=== PATIENT | male | born 1955 | race Caucasian/White ===

== ENCOUNTER 2019-10-30 00:47 | Inpatient (IN) | payer BC ==
[2019-10-30] VITALS (15 sets, daily range): BP systolic 118–167; BP diastolic 54–88
[~2019-10-30] VITALS: Ht 180.3 cm; Wt 100.6 kg
[~2019-10-30 00:47] MED LIST: ASPI-1265 PO; ATOR80TA PO; LANTUS SQ; METF-438 PO; METO50TA17 PO; NITR0.4T48 SL; OMEP40CA13 PO; SITA100T15 PO; TICA90TA PO; ZES10T PO
--- NOTE | 2019-10-30 00:59 | NUR ---
YUVAL SOUZA CALL FOR RIDE AND OR INFO [phone]
[2019-10-30] MEDS ORDERED: aspirin 81mg tab.chew PO ONE ×3 (01:05→15:05)
[2019-10-30] MEDS ORDERED: nitroGLYCERIN 0.4mg SUBLingual tab SL PRN ×3 (01:05→02:00)
[2019-10-30 01:24] LABS: BASOPHILS # (AUTO) 0.1 X10'3 (0-0.2); BASOPHILS % (AUTO) 0.9 % (0-1); EOSINOPHILS # (AUTO) 0.1 X10'3 (0-0.9); EOSINOPHILS % (AUTO) 0.9 % (0-6); HEMATOCRIT 42.3 % (42.0-52.0); HEMOGLOBIN 14.2 g/dl (14.0-17.9); LYMPHOCYTES # (AUTO) 4.1 X10'3 (1.1-4.8); LYMPHOCYTES % (AUTO) 33.2 % (21-51); MEAN CORPUSCULAR HEMOGLOBIN 30.9 PG (27.0-31.0); MEAN CORPUSCULAR HGB CONC 33.6 g/dL (33.0-36.5); MEAN CORPUSCULAR VOLUME 92.1 FL (78-98); MEAN PLATELET VOLUME 9.2 FL (7.4-10.4); MONOCYTES # (AUTO) 0.7 X10'3 (0-0.9); MONOCYTES % (AUTO) 5.4 % (2-12); NEUTROPHILS # (AUTO) 7.4 X10'3 (1.8-7.7); NEUTROPHILS % (AUTO) 59.6 % (42-75); PLATELET COUNT 198 X10'3 (140-440); RED CELL DISTRIBUTION WIDTH 15.8 % (11.5-14.5); WHITE BLOOD COUNT 12.4 X10'3 (4.5-11.0)
[2019-10-30 01:31] LABS: ALANINE AMINOTRANSFERASE 33 U/L (12-78); ALBUMIN 3.3 G/DL (3.4-5.0); ALBUMIN/GLOBULIN RATIO 0.7 (1.1-1.5); ALKALINE PHOSPHATASE 111 IU/L (46-116); ANION GAP 6 (8-16); ASPARTATE AMINO TRANSFERASE 26 U/L (10-37); BILIRUBIN,TOTAL 0.3 MG/DL (0.1-1.0); BLOOD UREA NITROGEN 14 MG/DL (7-18); BUN/CREATININE RATIO 11.5 (5.4-32.0); CALCIUM 8.8 MG/DL (8.5-10.1); CHLORIDE 108 MMOL/L (99-107); CREATININE 1.22 MG/DL (0.60-1.10); GLUCOSE 140 MG/DL (70-104); SODIUM 144 MMOL/L (135-145); TOTAL CARBON DIOXIDE 29.9 MMOL/L (24-32); eGFR 60 ML/MIN
[2019-10-30] MEDS ORDERED: acetaminophen 325mg tablet PO PRN (01:55)
[2019-10-30] MEDS ORDERED: HYDROcodone/acetaminophen 5mg/325mg tablet PO PRN (01:55)
[2019-10-30] MEDS ORDERED: potassium Cl 20 mEq SR tablet PO PRN ×2 (01:55)
[2019-10-30] MEDS ORDERED: morphine 2 MG/ML inj. syringe IV PRN ×2 (01:55→15:05)
[2019-10-30] MEDS ORDERED: magnesium 2GM in 50ml NS 50 ML IV PRN (01:55)
[2019-10-30] MEDS ORDERED: ondansetron/PF 4mg/2ml inj IV PRN (01:55)
[2019-10-30] MEDS ORDERED: potassium CL 10mEq/100ml bag 100 ML IV PRN ×2 (01:55)
[2019-10-30] MEDS ORDERED: magnesium 4gm in 100ml NS 100 ML IV PRN (01:55)
[2019-10-30] MEDS ORDERED: mag hydrox/Alum hydrox/simeth 30ml oral suspension PO PRN (01:55)
[2019-10-30] MEDS ORDERED: magnesium Cl slow-release 64mg tablet PO PRN (01:55)
[2019-10-30] MEDS ORDERED: bisacodyl 10mg suppository rectal RC PRN (01:55)
[2019-10-30] MEDS ORDERED: magnesium hydroxide 30ml (MOM) UD suspension PO PRN ×2 (01:55→15:10)
[2019-10-30] MEDS ORDERED: metoprolol tartrate 1mg/ml inj IV PRN (02:00)
[2019-10-30] MEDS ORDERED: glucagon, human recombinant 1mg kit SUBCUT PRN (02:00)
[2019-10-30] MEDS ORDERED: dextrose 50%-water 50ml dispensing syringe IV PRN ×2 (02:00)
[2019-10-30] MEDS ORDERED: ondansetron/PF 4mg/2ml inj IV ONE (02:00)
[2019-10-30] MEDS ORDERED: aminophylline 250mg/10ml inj. IV PRN (02:00)
[2019-10-30] MEDS ORDERED: morphine 4 MG/ML inj SYRINge IV ONE (02:00)
[2019-10-30] MEDS ORDERED: MESSAGE TO PHARMACY PO ONE (02:00)
[2019-10-30] MEDS ORDERED: dextrose ORAL solution 15 GM/59 ML bottle PO PRN ×2 (02:00)
[2019-10-30] MEDS ORDERED: insulin Lispro (HumaLOG) vial - multi-dose SQ SCH (02:00)
[2019-10-30] MEDS ORDERED: regadenoson 0.4mg/5ml syringe IV ONE (02:00)
[2019-10-30] MEDS ORDERED: OMEP40CA13 PO (02:22)
--- NOTE | 2019-10-30 03:00 | NUR ---
Patient in room PCU 3024. I have received report from Arnel VYAS and had the opportunity to ask questions and assume patient care.
--- NOTE | 2019-10-30 05:43 | NUR ---
PAGER ID: [phone] MESSAGE: [id number] Naun Dobbins: 3 hour trop 0.51, any actions needed? Rosangela VYAS 2018
[2019-10-30 05:56] LABS: HEMOGLOBIN A1C 8.1 % (4.5-6.2)
--- NOTE | 2019-10-30 06:19 | NUR ---
Problems reprioritized. Patient report given, questions answered & plan of care reviewed with Laurie VYAS.
--- NOTE | 2019-10-30 06:20 | NUR ---
Patient in room PCU 3024. I have received report from LILLIAM Adames and had the opportunity to ask questions and assume patient care.
[2019-10-30] MEDS: atorvastatin 20mg tablet PO SCH (07:08)
[2019-10-30] MEDS: docusate sod 100mg capsule PO SCH ×2 (07:11→19:31)
[2019-10-30] MEDS: lisinopril 5mg tablet PO SCH (07:11)
[2019-10-30] MEDS: metoprolol tartrate 50mg tablet PO SCH ×2 (07:11→19:31)
[2019-10-30] MEDS: aspirin 81mg tab.chew PO SCH (07:13)
[2019-10-30] MEDS: K and/or MAG REPLACEMENT MC SCH ×2 (07:23→20:00)
[2019-10-30] MEDS ORDERED: heparin, porcine 5000 units/ml vial SQ SCH (08:00)
--- NOTE | 2019-10-30 08:57 | NUR ---
Dr. Hamm paged of critical value troponin of 1.91. No new orders given yet. Charge nurse notified.
[2019-10-30] MEDS ORDERED: heparin 25,000 UNIT/250ml bag 250 ML IV SCH (10:29)
[2019-10-30] MEDS ORDERED: heparin 10,000 units/1 ML INJ IV PRN (10:30)
[2019-10-30] MEDS ORDERED: heparin 10,000 units/1 ML INJ IV ONE (10:30)
[2019-10-30 11:50] LABS: PARTIAL THROMBOPLASTIN TIME 27 SECONDS (22-32)
[2019-10-30] MEDS ORDERED: nitroGLYCERIN-Tridil 50MG/D5W 250 ML IV ONE ×2 (12:01→16:51)
[2019-10-30] MEDS ORDERED: fentaNYL/PF 50MCG/1 ML 2ML syringe ONE (12:02)
[2019-10-30] MEDS ORDERED: midazolam 2 mg/2 ml injection ONE (12:02)
[2019-10-30] MEDS ORDERED: iohexol 350MG/ML 100ml bottle IV ONE ×2 (12:02→13:05)
[2019-10-30] MEDS ORDERED: LIDOcaine 1% (10mg/ml)w/preservative injection 20ml MDV ONE (12:02)
[2019-10-30] MEDS ORDERED: iohexol 350 MG/ML 50ML vial IV ONE (12:02)
[2019-10-30] MEDS ORDERED: heparin 1,000unit/ml 10ml vial 10 ML ONE (13:04)
--- NOTE | 2019-10-30 13:05 | NUR ---
Pt with T2DM, current A1c is 8.1%. Attempted visit with pt at bedside however pt unavailable. Written DM education and RD contact information left at bedside. Will remain available. Addendum: 10/30/19 at [address] Amended: Links added.
[2019-10-30] MEDS ORDERED: ticagrelor 90mg tablet ONE (13:53)
[2019-10-30] MEDS ORDERED: ondansetron/PF 4mg/2ml inj ONE (14:04)
[2019-10-30] MEDS ORDERED: normal saline 1000ml 1,000 ML IV SCH (15:00)
--- NOTE | 2019-10-30 15:01 | NUR ---
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 Placed on monitor and settled in bed. Sheath transduced and site CDI with no hematoma. Orders reviewed and faxed to pharmacy
[2019-10-30] MEDS ORDERED: morphine 10mg/ml inj. IV PRN (15:10)
[2019-10-30] MEDS ORDERED: cyclobenzaprine 10mg tablet PO PRN (15:10)
[2019-10-30] MEDS ORDERED: HYDROcodone/acetaminophen 10/325mg tab PO PRN ×2 (15:10)
[2019-10-30 15:42] LABS: MAGNESIUM 1.4 MG/DL (1.5-2.4)
[2019-10-30] MEDS ORDERED: nitroGLYCERIN-Tridil 50MG/D5W 250 ML IV PRN (16:47)
--- NOTE | 2019-10-30 18:30 | NUR ---
Patient in room CICU 2014. I have received report from LILLIAM Richards and had the opportunity to ask questions and assume patient care.
[2019-10-30] MEDS ORDERED: ticagrelor 90mg tablet PO SCH (20:00)
[2019-10-30] MEDS ORDERED: insulin glargine (Lantus) pen - multi-dose SQ SCH (21:00)
[2019-10-31] VITALS (10 sets, daily range): BP systolic 124–149; BP diastolic 56–88
[2019-10-31 06:04] LABS: ALANINE AMINOTRANSFERASE 30 U/L (12-78); ALBUMIN/GLOBULIN RATIO 0.8 (1.1-1.5); ALKALINE PHOSPHATASE 107 IU/L (46-116); ANION GAP 12 (8-16); ASPARTATE AMINO TRANSFERASE 41 U/L (10-37); BILIRUBIN,TOTAL 0.7 MG/DL (0.1-1.0); BLOOD UREA NITROGEN 12 MG/DL (7-18); BUN/CREATININE RATIO 10.4 (5.4-32.0); CALCIUM 8.1 MG/DL (8.5-10.1); CHLORIDE 107 MMOL/L (99-107); CREATININE 1.15 MG/DL (0.60-1.10); GLUCOSE 134 MG/DL (70-104); MAGNESIUM 2.2 MG/DL (1.5-2.4); POTASSIUM 3.9 MMOL/L (3.5-5.1); SODIUM 143 MMOL/L (135-145); TOTAL CARBON DIOXIDE 24.4 MMOL/L (24-32); TOTAL PROTEIN 6.8 G/DL (6.4-8.2); eGFR 64 ML/MIN
[2019-10-31 06:10] LABS: TROPONIN I 4.41 NG/ML (0.0-0.05)
[2019-10-31 06:17] LABS: BASOPHILS % (AUTO) 0.3 % (0-1); EOSINOPHILS # (AUTO) 0.1 X10'3 (0-0.9); EOSINOPHILS % (AUTO) 0.5 % (0-6); HEMATOCRIT 38.2 % (42.0-52.0); HEMOGLOBIN 12.7 g/dl (14.0-17.9); LYMPHOCYTES # (AUTO) 2.4 X10'3 (1.1-4.8); LYMPHOCYTES % (AUTO) 20.8 % (21-51); MEAN CORPUSCULAR HEMOGLOBIN 30.6 PG (27.0-31.0); MEAN CORPUSCULAR HGB CONC 33.4 g/dL (33.0-36.5); MEAN CORPUSCULAR VOLUME 91.7 FL (78-98); MEAN PLATELET VOLUME 9.7 FL (7.4-10.4); MONOCYTES # (AUTO) 0.5 X10'3 (0-0.9); MONOCYTES % (AUTO) 4.6 % (2-12); NEUTROPHILS # (AUTO) 8.6 X10'3 (1.8-7.7); NEUTROPHILS % (AUTO) 73.8 % (42-75); PLATELET COUNT 183 X10'3 (140-440); RED BLOOD COUNT 4.16 X10'6 (4.70-6.10); RED CELL DISTRIBUTION WIDTH 15.8 % (11.5-14.5); WHITE BLOOD COUNT 11.7 X10'3 (4.5-11.0)
--- NOTE | 2019-10-31 06:29 | NUR ---
Problems reprioritized. Patient report given, questions answered & plan of care reviewed with LILLIAM Ovalle.
--- NOTE | 2019-10-31 06:30 | NUR ---
Received report from LILLIAM Weathers
[2019-10-31] MEDS ORDERED: ticagrelor 90mg tablet PO SCH (08:00)
[2019-10-31] MEDS ORDERED: clopidogrel 300mg tablet PO ONE (08:30)
[2019-10-31] MEDS: metoprolol tartrate 50mg tablet PO SCH (09:04)
[2019-10-31] MEDS: docusate sod 100mg capsule PO SCH (09:04)
[2019-10-31] MEDS: aspirin 81mg tab.chew PO SCH (09:04)
[2019-10-31] MEDS: lisinopril 5mg tablet PO SCH (09:04)
[2019-10-31] MEDS: atorvastatin 20mg tablet PO SCH (09:05)
--- NOTE | 2019-10-31 09:55 | NUR ---
Patient left AMA
--- NOTE | 2019-10-31 10:40 | NUR ---
At approximately 0830 patient stated that he wanted to go home. He said, "I am not waiting here all day, if you can't discharge me this morning, I'll leave on my own." I called Dr. Barba to discharge patient, he expressed his discontent with receiving a call on his cell phone. Unable to obtain a discharge order from Dr. Barba. Patient made the decision to leave AMA. I notified Dr. Cardoza of the patient's decision. Patient left with home prescriptions that were being held in the pharmacy, I called new prescriptions to patient's preferred pharmacy, he had all belongs with him, and I transported him outside of the main entrance via wheelchair. Addendum: 11/03/19 at 1632 by Yamile Maria RN Later was made aware that Dr. Barba was not the hospitalist that admitted patient.
== END 2019-10-31 14:40 | disposition home or self-care (01) | DRG 287 ==
LOC: ER 00:47 → ED HOLD 01:53 → PCU 3S 03:25 → CICU 2S 14:30
PROVIDERS: ADMIT Family Medicine; ATTEND Family Medicine
PROC: 4A023N7 Measurement of Cardiac Sampling and Pressure, Left Heart, Percutaneous Approach (ICD-10-PCS; principal; 2019-10-30)
PROC: B2111ZZ Fluoroscopy of Multiple Coronary Arteries using Low Osmolar Contrast (ICD-10-PCS; 2019-10-30)
PROC: B3101ZZ Fluoroscopy of Thoracic Aorta using Low Osmolar Contrast (ICD-10-PCS; 2019-10-30)
PROC: B2151ZZ Fluoroscopy of Left Heart using Low Osmolar Contrast (ICD-10-PCS; 2019-10-30)
DX: T82.855A Stenosis of coronary artery stent, initial encounter (principal); I24.9 Acute ischemic heart disease, unspecified; I25.110 Atherosclerotic heart disease of native coronary artery with unstable angina pectoris; E78.5 Hyperlipidemia, unspecified; K21.9 Gastro-esophageal reflux disease without esophagitis; N18.9 Chronic kidney disease, unspecified; I12.9 Hypertensive chronic kidney disease with stage 1 through stage 4 chronic kidney disease, or unspecified chronic kidney disease; E11.22 Type 2 diabetes mellitus with diabetic chronic kidney disease; J44.9 Chronic obstructive pulmonary disease, unspecified; F17.200 Nicotine dependence, unspecified, uncomplicated; E66.9 Obesity, unspecified; E78.00 Pure hypercholesterolemia, unspecified; Y83.8 Other surgical procedures as the cause of abnormal reaction of the patient, or of later complication, without mention of misadventure at the time of the procedure; Z82.49 Family history of ischemic heart disease and other diseases of the circulatory system; Z88.8 Allergy status to other drugs, medicaments and biological substances; Z95.1 Presence of aortocoronary bypass graft; Y92.89 Other specified places as the place of occurrence of the external cause
CPT/HCPCS: 36415; 71045; 76937; 80053; 82948; 83036; 83735; 84132; 84484; 85025; 85347; 85610; 85730; 87081; 92920; 92978; 93005; 93306; 93459; 99152; 99153; 99285; A4620; A6258; C1725; C1751; C1753; C1769; G0378; J1644; J1815; J2001; J2250; J2270; J2405; J3010; J3475; J3490; J7030; Q9967

== ENCOUNTER 2019-12-06 11:05 | Inpatient (IN) | payer BC ==
[~2019-12-06] VITALS: Ht 180.3 cm; Wt 100.0 kg
[2019-12-06] VITALS (12 sets, daily range): BP systolic 142–164; BP diastolic 62–85
[~2019-12-06 11:05] MED LIST changes: -OMEP40CA13 PO; -TICA90TA PO
[2019-12-06] MEDS ORDERED: morphine 4 MG/ML inj SYRINge IV ONE (11:25)
[2019-12-06] MEDS ORDERED: ondansetron/PF 4mg/2ml inj IV ONE (11:25)
[2019-12-06 12:13] LABS: BASOPHILS # (AUTO) 0.1 X10'3 (0-0.2); BASOPHILS % (AUTO) 0.9 % (0-1); EOSINOPHILS % (AUTO) 0.5 % (0-6); HEMATOCRIT 44.8 % (42.0-52.0); HEMOGLOBIN 14.8 g/dl (14.0-17.9); LYMPHOCYTES # (AUTO) 2.9 X10'3 (1.1-4.8); LYMPHOCYTES % (AUTO) 35.4 % (21-51); MEAN CORPUSCULAR HEMOGLOBIN 30.1 PG (27.0-31.0); MEAN CORPUSCULAR VOLUME 91.3 FL (78-98); MEAN PLATELET VOLUME 8.7 FL (7.4-10.4); MONOCYTES # (AUTO) 0.6 X10'3 (0-0.9); MONOCYTES % (AUTO) 6.8 % (2-12); NEUTROPHILS # (AUTO) 4.6 X10'3 (1.8-7.7); NEUTROPHILS % (AUTO) 56.4 % (42-75); PLATELET COUNT 216 X10'3 (140-440); RED CELL DISTRIBUTION WIDTH 15.4 % (11.5-14.5); WHITE BLOOD COUNT 8.2 X10'3 (4.5-11.0)
[2019-12-06 12:29] LABS: ALANINE AMINOTRANSFERASE 13 U/L (12-78); ALBUMIN 3.3 G/DL (3.4-5.0); ALBUMIN/GLOBULIN RATIO 0.8 (1.1-1.5); ALKALINE PHOSPHATASE 110 IU/L (46-116); ANION GAP 10 (8-16); ASPARTATE AMINO TRANSFERASE 17 U/L (10-37); BILIRUBIN,TOTAL 0.5 MG/DL (0.1-1.0); BLOOD UREA NITROGEN 10 MG/DL (7-18); BUN/CREATININE RATIO 9.3 (5.4-32.0); CALCIUM 9.1 MG/DL (8.5-10.1); CHLORIDE 104 MMOL/L (99-107); CREATININE 1.07 MG/DL (0.60-1.10); GLUCOSE 145 MG/DL (70-104); POTASSIUM 3.8 MMOL/L (3.5-5.1); SODIUM 140 MMOL/L (135-145); TOTAL CARBON DIOXIDE 26.3 MMOL/L (24-32); TOTAL PROTEIN 7.7 G/DL (6.4-8.2); eGFR 70 ML/MIN
--- NOTE | 2019-12-06 12:36 | NUR ---
pt stated that sx told him that he is going for sx today around 4-5 pm.
--- NOTE | 2019-12-06 12:39 | NUR ---
pt assisted to restroom as per dr bran request as pt need to be unhook from monitor to urinate.
--- NOTE | 2019-12-06 12:56 | NUR ---
call chai akhtar after surgery at [phone].
--- NOTE | 2019-12-06 13:00 | NUR ---
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
[2019-12-06] MEDS ORDERED: ASPI-1397 PO (13:19)
[2019-12-06] MEDS ORDERED: METO-384 PO (13:19)
[2019-12-06] MEDS ORDERED: CLOP75TA35 PO (13:19)
[2019-12-06] MEDS ORDERED: SACU1TAB PO (13:19)
[2019-12-06] MEDS ORDERED: SITA100T15 PO (13:34)
[2019-12-06] MEDS ORDERED: LISI-604 PO (13:34)
[2019-12-06] MEDS ORDERED: NITR0.4T51 SL (13:34)
[2019-12-06] MEDS ORDERED: LANTUS SQ (13:34)
[2019-12-06] MEDS ORDERED: magnesium 4gm in 100ml NS 100 ML IV PRN (14:10)
[2019-12-06] MEDS ORDERED: potassium Cl 20 mEq SR tablet PO PRN ×2 (14:10)
[2019-12-06] MEDS ORDERED: potassium CL 10mEq/100ml bag 100 ML IV PRN ×2 (14:10)
[2019-12-06] MEDS ORDERED: ondansetron/PF 4mg/2ml inj IV PRN ×2 (14:10→20:30)
[2019-12-06] MEDS ORDERED: magnesium Cl slow-release 64mg tablet PO PRN (14:10)
[2019-12-06] MEDS ORDERED: morphine 2 MG/ML inj. syringe IV PRN ×2 (14:10→20:30)
[2019-12-06] MEDS ORDERED: magnesium 2GM in 50ml NS 50 ML IV PRN (14:10)
[2019-12-06] MEDS: normal saline 1000ml 1,000 ML IV SCH (15:12)
--- NOTE | 2019-12-06 16:40 | NUR ---
Began getting report from ED who indicates pt currently on life vest due to cardiac issues. EF on last echo 10/30/19 was 25%. Spoke with Dr Edwards and it was decided that pt needed Tele. Notified chargeback analyst and warehouse shipping supervisor for appropriately assigned room.
[2019-12-06] MEDS ORDERED: LIDOcaine 1% 30ml preserv. free vial ONE (17:48)
[2019-12-06] MEDS ORDERED: BUPIVAcaine/PF 2.5 mg/ml (0.25%) 30ml vial ONE (17:48)
[2019-12-06] MEDS: K and/or MAG REPLACEMENT MC SCH (20:00)
[2019-12-06] MEDS ORDERED: ringers solution, lacted 1,000 ML IV SCH (20:27)
[2019-12-06] MEDS ORDERED: ketamine 50mg/5ml syringe ONE (20:29)
[2019-12-06] MEDS ORDERED: fentaNYL/PF 50MCG/1 ML 2ML syringe ONE ×3 (20:29→21:11)
[2019-12-06] MEDS ORDERED: midazolam 2 mg/2 ml injection ONE (20:29)
[2019-12-06] MEDS ORDERED: meperidine/PF 25mg/ml syringe IV PRN ×3 (20:30)
[2019-12-06] MEDS ORDERED: morphine 4 MG/ML inj SYRINge IV PRN (20:30)
[2019-12-06] MEDS ORDERED: proCHLORperazine 10 MG/2 ml inj IV PRN (20:30)
[2019-12-06] MEDS ORDERED: LIDOcaine 2% (20mg/ml) 5ml vial ONE (21:16)
[2019-12-06] MEDS ORDERED: propofol inj 20 ML IV ONE (21:16)
--- NOTE | 2019-12-06 21:20 | NUR ---
Received from OR via BED , accompanied by Anesthesiologist DR JOSEPH and report given by Anesthesiolgist. PATIENT WAKING UP, DENIES PAIN, V/S WNL, NEUROVASCULAR CHECKS INTACT, 20G PIV LUE, SCD ON, ISLAND DRESSING TO LAP SIGHTS OF ABDOMEN CDI.
[2019-12-06] MEDS ORDERED: oxyCODONE/APAP 5-325mg tablet PO PRN (21:25)
--- NOTE | 2019-12-06 21:41 | NUR ---
Patient in room ED 11. I have received report from Abhi VYAS and had the opportunity to ask questions and assume patient care.
--- NOTE | 2019-12-06 22:00 | NUR ---
PATIENT A&OX4, DENIES PAIN, V/S WNL, NEUROVASCULAR CHECKS INTACT, 20G PIV LUE, SCD ON, ISLAND DRESSING TO LAP SIGHTS OF ABDOMEN CDI. PATIENT TAKEN TO 3012A WITH ALL BELONGINGS AND HOOKED UP TO MONITORS IN ROOM AND REPORT GIVEN TO GLOBAL RISK MANAGEMENT DIRECTOR WHO HAS TAKEN OVER PATIENT CARE.
--- NOTE | 2019-12-06 22:15 | NUR ---
Patient arrived on unit. Alert and oriented. Telemetry applied, vital signs obtained- 97.9 temp, o2 94%, HR 76, 154/71 bp, RR 15 Two RN skin check completed, MRSA swab obtained. Dressing assessed, minimal drainage. Will continue to monitor and assess closely.
[2019-12-07] MEDS: ceFOXitin 1 GM/D5W 50mL IVPB 50 ML IV SCH ×2 (00:09→08:26)
[2019-12-07] MEDS: normal saline 1000ml 1,000 ML IV SCH ×2 (00:09→10:06)
[2019-12-07 00:11] VITALS: BP 137/69
[2019-12-07 01:11] VITALS: BP 142/61
[2019-12-07 01:42] VITALS: BP 133/68
[2019-12-07] MEDS: oxyCODONE/APAP 5-325mg tablet PO PRN ×2 (03:58→13:24)
[2019-12-07 06:00] VITALS: BP 138/82
[2019-12-07 06:10] LABS: BASOPHILS % (AUTO) 0.5 % (0-1); EOSINOPHILS # (AUTO) 0.1 X10'3 (0-0.9); EOSINOPHILS % (AUTO) 0.9 % (0-6); HEMATOCRIT 40.9 % (42.0-52.0); HEMOGLOBIN 13.7 g/dl (14.0-17.9); LYMPHOCYTES # (AUTO) 2.4 X10'3 (1.1-4.8); LYMPHOCYTES % (AUTO) 26.1 % (21-51); MEAN CORPUSCULAR HEMOGLOBIN 30.5 PG (27.0-31.0); MEAN CORPUSCULAR HGB CONC 33.6 g/dL (33.0-36.5); MEAN CORPUSCULAR VOLUME 90.9 FL (78-98); MEAN PLATELET VOLUME 8.8 FL (7.4-10.4); MONOCYTES # (AUTO) 0.6 X10'3 (0-0.9); MONOCYTES % (AUTO) 6.5 % (2-12); NEUTROPHILS # (AUTO) 6.1 X10'3 (1.8-7.7); PLATELET COUNT 194 X10'3 (140-440); RED CELL DISTRIBUTION WIDTH 15.4 % (11.5-14.5); WHITE BLOOD COUNT 9.3 X10'3 (4.5-11.0)
[2019-12-07 06:19] LABS: ALBUMIN 2.9 G/DL (3.4-5.0); ANION GAP 9 (8-16); BLOOD UREA NITROGEN 12 MG/DL (7-18); BUN/CREATININE RATIO 11.4 (5.4-32.0); CALCIUM 8.5 MG/DL (8.5-10.1); CHLORIDE 106 MMOL/L (99-107); CREATININE 1.05 MG/DL (0.60-1.10); GLUCOSE 135 MG/DL (70-104); MAGNESIUM 1.3 MG/DL (1.5-2.4); POTASSIUM 3.7 MMOL/L (3.5-5.1); SODIUM 142 MMOL/L (135-145); TOTAL CARBON DIOXIDE 27.1 MMOL/L (24-32); eGFR 71 ML/MIN
--- NOTE | 2019-12-07 06:20 | NUR ---
Problems reprioritized. Patient report given, questions answered & plan of care reviewed with Laurie VYAS.
--- NOTE | 2019-12-07 06:35 | NUR ---
Patient in room PCU 3012A. I have received report from Rossana VYAS and had the opportunity to ask questions and assume patient care.
--- NOTE | 2019-12-07 08:44 | NUR ---
Patient stated that he is leaving today whether he gets a discharge order or not, stating "I will sign myself out if I need to." Patient also stated that is going to take his life vest on and asked me for help. I educated the importance of keeping it on and that I cannot take it off. Pt said "I am taking this life vest off whether you help me or not." Life vest off and bedside.
[2019-12-07] MEDS: K and/or MAG REPLACEMENT MC SCH (08:50)
[2019-12-07 11:00] VITALS: BP 168/83
--- NOTE | 2019-12-07 11:37 | NUR ---
Malnutrition/DM Consults: Pt admit s/p strangulated umbilical hernia repair PO pending post-op. LBM 12/04. Pt has normal strength, no edema, no current scaled wt this admit though last month 100.6kg bed scale BMI 31. Hx T2DM A1C 8.1 provided w/ ed last admit 10/29. At this time pt does not meet minimum malnutrition criteria; will continue to monitor. Addendum: 12/07/19 at [address] Amended: Links added.
[2019-12-07 15:00] VITALS: BP 154/84
--- NOTE | 2019-12-07 16:39 | NUR ---
Paged Dr Edwards PAGER ID: [phone] MESSAGE: Laurie DELGADO. Lore Centeno [id number]. Spoke to Dr Black regarding pt's prescription for discharge pain medication. Dr Black said that you can write the prescription or he can in about 45 minutes. Are you able to write pain med prescription?
--- NOTE | 2019-12-07 16:50 | NUR ---
Per Dr Black and Hospitalist, patient stable for discharge home. Discharge packet provided and education given. Patient instructed to call Dr Black's office to make followup appt. Hardcopy Ultram prescription given to patient and copy placed in chart. Post op instructions given as well, to not heavy lift for 4 weeks, it is okay to shower, and to advance diet as tolerated. IV removed and tele removed and returned to telecommunications specialist. All belongings sent with patient. Patient escorted from hospital accompanied by aid via wheelchair, and driven home with in private vehicle.
[2019-12-07] MEDS ORDERED: sacubitril/valsartan 24mg-26mg tablet PO SCH (20:00)
[2019-12-08] MEDS ORDERED: aspirin 81mg tablet.DR PO SCH (08:00)
[2019-12-08] MEDS ORDERED: clopidogrel 75mg tablet PO SCH (08:00)
[2019-12-08] MEDS ORDERED: linagliptin 5mg tablet PO SCH (08:00)
[2019-12-08] MEDS ORDERED: lisinopril 5mg tablet PO SCH (08:00)
[2019-12-08] MEDS ORDERED: atorvastatin 20mg tablet PO SCH (08:00)
[2019-12-08] MEDS ORDERED: metoprolol succinate 25mg (24-HOUR) SR. Tablet PO SCH (08:00)
== END 2019-12-07 16:51 | disposition home or self-care (01) | DRG 354 ==
LOC: ER 11:05 → ED HOLD 14:06 → PCU 3S 22:15
PROVIDERS: ADMIT Internal Medicine; ATTEND Internal Medicine
PROC: 0WQF0ZZ Repair Abdominal Wall, Open Approach (ICD-10-PCS; principal; 2019-12-06 20:30)
DX: K42.0 Umbilical hernia with obstruction, without gangrene (principal); I50.22 Chronic systolic (congestive) heart failure; E11.9 Type 2 diabetes mellitus without complications; E78.5 Hyperlipidemia, unspecified; F17.210 Nicotine dependence, cigarettes, uncomplicated; I11.0 Hypertensive heart disease with heart failure; I25.10 Atherosclerotic heart disease of native coronary artery without angina pectoris; Z95.1 Presence of aortocoronary bypass graft; Z88.8 Allergy status to other drugs, medicaments and biological substances; Z79.899 Other long term (current) drug therapy
CPT/HCPCS: 96374; 96375; 99285; Z7506; 36415; 80048; 80053; 82948; 83735; 85025; 87081; A4618; A7000; G0378; J0694; J2001; J2250; J2270; J2405; J2704; J3010; J3490; J7030; J7120